=== PATIENT | female | born 1945 | race Caucasian/White ===

== ENCOUNTER 2021-07-19 14:07 | Outpatient (CLI) | payer MEDICARE, BC | END 2021-07-19 14:08 | disposition home or self-care (01) | LOC: CSHMRI 14:07 | PROVIDERS: ATTEND Specialist | DX: R41.82 Altered mental status, unspecified (principal); G31.9 Degenerative disease of nervous system, unspecified | CPT/HCPCS: 70551; 82565 ==

== ENCOUNTER 2021-10-21 13:03 | Outpatient (CLI) | payer MEDICARE, BC | END 2021-10-21 13:04 | disposition home or self-care (01) | LOC: CSHULT 13:03 | PROVIDERS: ATTEND Specialist | DX: N93.9 Abnormal uterine and vaginal bleeding, unspecified (principal) | CPT/HCPCS: 76856 ==

== ENCOUNTER 2023-12-07 14:43 | Outpatient (CLI) | payer MEDICARE | END 2023-12-07 14:44 | disposition home or self-care (01) | LOC: CSHULT 14:43 | PROVIDERS: ATTEND Specialist | DX: R33.9 Retention of urine, unspecified (principal) | CPT/HCPCS: 76770 ==

== ENCOUNTER 2025-01-06 09:38 | Outpatient (CLI) | payer MEDICARE ==
[2025-01-06 11:07] LABS: Estimated GFR - POC 20.0
== END 2025-01-06 09:39 | disposition home or self-care (01) ==
LOC: CSHCT 09:38
PROVIDERS: ATTEND Specialist
DX: R41.82 Altered mental status, unspecified (principal); G93.89 Other specified disorders of brain
CPT/HCPCS: 36415; 70450; 82565